=== PATIENT | male | born 1940 | race Native Hawaiian/Other Pacific Islander ===

== ENCOUNTER 2022-12-16 18:58 | Inpatient (IN) | payer OTHER ==
[~2022-12-16] VITALS: Ht 167.6 cm; Wt 65.5 kg
[~2022-12-16 18:58] MED LIST: CEPH500C20 PO
[2022-12-16 19:05] VITALS: BP 110/54; TEMP 98.5
[2022-12-16 19:30] VITALS: BP 111/50
[2022-12-16 19:58] LABS: PLATELET COUNT 217 K/uL (142-355)
[2022-12-16 20:05] LABS: POTASSIUM 3.9 mmol/L (3.6-5.2)
[2022-12-16 20:30] VITALS: BP 116/58
[2022-12-16 21:30] VITALS: BP 121/68
[2022-12-16 22:00] VITALS: BP 123/66
[2022-12-16 22:37] VITALS: BP 137/72; TEMP 97.8; Ht 167.6 cm; Wt 65.5 kg
[2022-12-17] VITALS: BP 137/72; TEMP 97.8
[2022-12-17 03:36] VITALS: BP 103/51; TEMP 99.1
[2022-12-17 05:27] LABS: PLATELET COUNT 244 K/uL (142-355)
[2022-12-17] MEDS ORDERED: SIMV10TA PO (07:18)
[2022-12-17] MEDS ORDERED: NEURONTIN 100M100 MG PO (07:19)
[2022-12-17 08:00] VITALS: BP 104/54; TEMP 98.6
[2022-12-17] MEDS ORDERED: JARDIANCE10 MG PO (10:25)
[2022-12-17] MEDS ORDERED: FURO20TA67 PO (10:26)
[2022-12-17] MEDS ORDERED: EUTHYROX75 MCG PO (10:26)
[2022-12-17] MEDS ORDERED: POTA10CA3 PO (10:26)
[2022-12-17] MEDS ORDERED: APIX1TAB PO (10:27)
[2022-12-17] MEDS ORDERED: ENTRESTO 24-261 TAB PO (10:28)
[2022-12-17 12:00] VITALS: BP 108/58; TEMP 98.3
[2022-12-17 16:52] VITALS: BP 114/62; TEMP 98.3
[2022-12-17 20:00] VITALS: BP 110/53; TEMP 98.7
[2022-12-18] VITALS: BP 112/64; TEMP 98.7
[2022-12-18 03:50] VITALS: BP 107/53; TEMP 98.7
[2022-12-18 07:52] LABS: PLATELET COUNT 229 K/uL (142-355)
[2022-12-18 07:53] LABS: POTASSIUM 4.6 mmol/L (3.6-5.2)
[2022-12-18 08:00] VITALS: BP 89/46; TEMP 98.7
[2022-12-18 12:00] VITALS: BP 108/64; TEMP 98.8
[2022-12-18 16:00] VITALS: BP 100/62; TEMP 99
[2022-12-18 20:00] VITALS: BP 136/59; TEMP 98.2
[2022-12-19] VITALS: BP 81/41; TEMP 98.6
[2022-12-19 04:00] VITALS: BP 89/48; TEMP 98.7
[2022-12-19 07:24] LABS: PLATELET COUNT 205 K/uL (142-355)
[2022-12-19 07:35] LABS: POTASSIUM 4.4 mmol/L (3.6-5.2)
[2022-12-19 08:00] VITALS: BP 100/52; TEMP 98.1
[2022-12-19 12:00] VITALS: BP 100/47; TEMP 98.2
[2022-12-19 16:00] VITALS: BP 102/60; TEMP 98
[2022-12-19 20:00] VITALS: BP 95/52; TEMP 97.7
[2022-12-20] VITALS: BP 108/61; TEMP 97.9
[2022-12-20 04:00] VITALS: BP 110/60; TEMP 97.9
[2022-12-20 07:58] LABS: PLATELET COUNT 203 K/uL (142-355)
[2022-12-20 08:00] VITALS: BP 102/55; TEMP 98.3
[2022-12-20 08:13] LABS: POTASSIUM 4.2 mmol/L (3.6-5.2)
[2022-12-20 12:00] VITALS: BP 117/63; TEMP 98.5
[2022-12-20] MEDS ORDERED: LEVAQUIN250 MG PO (12:11)
== END 2022-12-20 16:27 | disposition home or self-care (01) | DRG 593 ==
LOC: ED 18:58 → MED/SURG 21:15
PROVIDERS: Family Medicine; ADMIT Nurse Practitioner Family; ATTEND Internal Medicine
DX: L97.828 Non-pressure chronic ulcer of other part of left lower leg with other specified severity (principal); E87.1 Hypo-osmolality and hyponatremia; N39.0 Urinary tract infection, site not specified; L97.818 Non-pressure chronic ulcer of other part of right lower leg with other specified severity; N18.32 Chronic kidney disease, stage 3b; B96.4 Proteus (mirabilis) (morganii) as the cause of diseases classified elsewhere; B96.1 Klebsiella pneumoniae [K. pneumoniae] as the cause of diseases classified elsewhere; Z79.01 Long term (current) use of anticoagulants; E11.42 Type 2 diabetes mellitus with diabetic polyneuropathy; E03.8 Other specified hypothyroidism; I50.9 Heart failure, unspecified; E83.51 Hypocalcemia
CPT/HCPCS: 36415; 80048; 80053; 81000; 82948; 85027; 85379; 87070; 87077; 87086; 87088; 87186; 87205; 96365; 96367; 96375; 99284; J1650; J1815; J2270; J2405